=== PATIENT | female | born 1985 | race Caucasian/White ===

== ENCOUNTER 2016-08-12 16:49 | Emergency (ER) | payer OTHER ==
[~2016-08-12] VITALS: Ht 154.9 cm; Wt 79.0 kg
[~2016-08-12 16:49] MED LIST: ALAVERT10 MG PO; AMOXICILLIN500 MG PO; LEVAQUIN750 MG PO; LORTAB5 PO; MUCINEX600 MG PO; PREDNISONE20 MG PO; PRENATA3 OR; PROAIR HFA IN; PROMETHAZINE12.5 MG PO; QVAR80 MCG IN; SOLU-MEDROL125 MG IM; ZOFRAN ODT8 MG OR
[2016-08-12] MEDS ORDERED: KEFLEX500 MG PO (17:49)
[2016-08-12 17:55] VITALS: BP 119/67
== END 2016-08-12 17:55 | disposition home or self-care (01) | DRG 605 ==
LOC: ED 16:49
PROC: 0HQGXZZ Repair Left Hand Skin, External Approach (ICD-10-PCS; principal; 2016-08-12)
DX: S61.012A Laceration without foreign body of left thumb without damage to nail, initial encounter (principal); W27.4XXA Contact with kitchen utensil, initial encounter; Y93.89 Activity, other specified; Y92.009 Unspecified place in unspecified non-institutional (private) residence as the place of occurrence of the external cause

== ENCOUNTER 2017-01-02 11:47 | Emergency (ER) | payer OTHER ==
[~2017-01-02] VITALS: Ht 154.9 cm; Wt 79.0 kg
[~2017-01-02 11:47] MED LIST changes: +KEFLEX500 MG PO
[2017-01-02 12:17] LABS: HEMATOCRIT 46.3 % (37.0-47.0); HEMOGLOBIN 15.6 g/dl (12.0-16.0); IMMATURE GRANULOCYTES 0.5 % (0.0-1.0); MEAN CELL VOLUME 87.9 fL CALC (80.0-100.0); MEAN CORPUSCULAR HGB 29.6 pG CALC (26.0-32.0); MEAN CORPUSCULAR HGB CONC 33.7 g/L CALC (32.0-36.0); NEUT# 8.6 thou/uL (2.00-7.15); RED BLOOD COUNT 5.27 mill/uL (4.20-5.60); RED CELL DISTRI WIDTH 12.3 % (11.5-15.5)
[2017-01-02 12:31] LABS: ALBUMIN 5.2 g/dL (3.2-5.0); ALKALINE PHOSPHATASE 105 u/l (38-126); ANION GAP 23 (6-22 (CALC)); BILIRUBIN, TOTAL 1.6 mg/dL (0.0-1.4); BUN 10 mg/dL (7-17); BUN/CREATININE RATIO 17 (12-20 (CALC)); CARBON DIOXIDE 20 mmol/l (22-30); CHLORIDE 105 mmol/l (95-108); CREATININE 0.6 mg/dL (0.5-1.0); GFR > 60 ML/MIN (>=60 (CALC)); GFR FOR AFR.AMER. > 60 ML/MIN (>=60 (CALC)); GLUCOSE 84 mg/dL (65-105); POTASSIUM 4.2 mmol/l (3.5-5.1); SGOT/AST 25 u/l (14-36); SGPT/ALT 30 u/l (9-52); SODIUM 144 mmol/l (137-146); TOTAL PROTEIN 8.9 g/dL (6.3-8.2)
[2017-01-02] MEDS ORDERED: VENTOLIN HFA IN (12:37)
[2017-01-02] MEDS ORDERED: PREDNISONE50 MG PO (12:37)
[2017-01-02] MEDS ORDERED: ALBUTEROL SUL0.083 % IN (12:37)
[2017-01-02] MEDS ORDERED: TYLENOL # 31 TA1 PO (12:59)
[2017-01-02] MEDS ORDERED: ZITHROMAX250 MG PO (12:59)
[2017-01-02 13:06] VITALS: BP 121/78
== END 2017-01-02 13:10 | disposition home or self-care (01) | DRG 203 ==
LOC: ED 11:47
PROVIDERS: Emergency Medicine
DX: J20.9 Acute bronchitis, unspecified (principal)